=== PATIENT | female | born 1980 | race African-American/Black ===

== ENCOUNTER 2024-10-04 09:14 | Outpatient (CLI) | payer OTHER | END 2024-10-04 09:15 | disposition home or self-care (01) | LOC: BICMRI 09:14 | PROVIDERS: ATTEND Family Medicine | DX: S89.91XA Unspecified injury of right lower leg, initial encounter (principal); S83.211A Bucket-handle tear of medial meniscus, current injury, right knee, initial encounter; S83.281A Other tear of lateral meniscus, current injury, right knee, initial encounter ==

== ENCOUNTER 2024-10-24 13:45 | Emergency (ER) | payer BC ==
[2024-10-24] MEDS ORDERED: Ketorolac Tromethamine 30 MG (1 mL) VIAL ONE (15:35)
[2024-10-24] MEDS ORDERED: HYDROcodone/Acetaminophen 5/325 mg Tablet ONE (15:35)
== END 2024-10-24 15:50 | disposition home or self-care (01) ==
LOC: ERS 13:45
DX: M25.561 Pain in right knee (principal); F17.210 Nicotine dependence, cigarettes, uncomplicated
CPT/HCPCS: 96372; 99282; J1885